=== PATIENT | female | born 1960 | race African-American/Black ===

== ENCOUNTER 2017-12-11 19:56 | Emergency (ER) | payer MEDICARE, MEDICAID ==
[~2017-12-11] VITALS: Ht 167.6 cm; Wt 84.8 kg
[2017-12-11 19:58] VITALS: BP 155/76
== END 2017-12-11 20:00 | disposition left against medical advice (07) ==
LOC: ER 19:56
DX: Z46.6 Encounter for fitting and adjustment of urinary device (principal); Z53.21 Procedure and treatment not carried out due to patient leaving prior to being seen by health care provider

== ENCOUNTER 2018-12-13 09:21 | Emergency (ER) | payer MEDICARE, MEDICAID ==
[~2018-12-13] VITALS: Ht 167.6 cm; Wt 84.8 kg
[2018-12-13 09:31] VITALS: BP 140/76
== END 2018-12-13 11:19 | disposition home or self-care (01) ==
LOC: ER 09:24
DX: J02.9 Acute pharyngitis, unspecified (principal); E11.9 Type 2 diabetes mellitus without complications; Z90.710 Acquired absence of both cervix and uterus

== ENCOUNTER 2019-11-16 13:14 | Emergency (ER) | payer MEDICARE, MEDICAID ==
[~2019-11-16] VITALS: Ht 167.6 cm; Wt 87.5 kg
[2019-11-16 15:01] LABS: Basophils # (auto) 0 uL; Basophils % (auto) 0.5 % (0.0-2.0); Eosinophils # (auto) 0.1 uL; Eosinophils % (auto) 1.4 % (0.0-7.0); Hematocrit 40.5 % (36.0-46.0); Hemoglobin 13.3 g/dL (12.2-16.2); Lymphocytes # (auto) 2.5 uL; Lymphocytes % (auto) 40.7 % (10.0-50.0); Mean Corpuscular Hemoglobin 27.3 pg (28.0-32.0); Mean Corpuscular Hgb Conc. 32.8 g/dL (32.0-36.0); Mean Corpuscular Volume 83.1 fL (80.0-100.0); Monocytes # (auto) 0.5 uL; Monocytes % (auto) 8.4 % (0.0-12.0); Nucleated Red Blood Cells % 0.1 %; Platelet Count (auto) 276 10^3/uL (140-450); Red Blood Cells 4.88 10^6/uL (4.0-5.20); Red Cell Distribution Width 14.2 % (11.8-14.3); White Blood Cell 6.2 10^3/uL (4.4-10.8)
[2019-11-16 15:18] LABS: Albumin 3.6 g/dL (3.4-5.0); BUN/Creatinine Ratio 13.8; Calcium 9.3 mg/dL (8.5-10.1); Potassium 3.8 mmol/L (3.5-5.1)
[2019-11-16 15:21] LABS: Bilirubin, Total 0.5 mg/dL (0.2-1.0); Total Protein 7.9 g/dL (6.4-8.2)
[2019-11-16 17:19] VITALS: BP 133/77
== END 2019-11-16 17:26 | disposition home or self-care (01) ==
LOC: ER 13:14
DX: K59.00 Constipation, unspecified (principal); E11.9 Type 2 diabetes mellitus without complications; I10 Essential (primary) hypertension; Z88.6 Allergy status to analgesic agent
CPT/HCPCS: 36415; 74018; 80053; 85025

== ENCOUNTER 2022-12-30 15:57 | Emergency (ER) | payer MEDICARE, MEDICAID ==
[~2022-12-30] VITALS: Ht 167.6 cm; Wt 97.6 kg
[2022-12-30 16:10] VITALS: BP 131/68
[2022-12-30 18:06] LABS: Urine Bacteria FEW /hpf (None Seen); Urine Blood Negative /uL (Negative); Urine Specific Gravity 1.014 (1.001-1.035); Urine WBC 5 /hpf (0 - 5)
[2022-12-30 19:02] LABS: Basophils # (auto) 0 10 ^3/uL (0-0.2); Basophils % (auto) 0.3 % (0.0-2.0); Eosinophils # (auto) 0.1 10 ^3/uL (0-0.8); Hematocrit 37.8 % (36.0-46.0); Hemoglobin 11.9 g/dL (12.2-16.2); Lymphocytes # (auto) 2.3 10 ^3/uL (0.4-5.4); Mean Corpuscular Hemoglobin 26.7 pg (28.0-32.0)
[2022-12-30 19:04] LABS: Lymphocytes % (auto) 36.7 % (10.0-50.0); Mean Corpuscular Hgb Conc. 31.6 g/dL (32.0-36.0); Mean Corpuscular Volume 84.6 fL (80.0-100.0); Monocytes # (auto) 0.6 10 ^3/uL (0-1.3); Monocytes % (auto) 9.1 % (0.0-12.0); Neutrophils # (auto) 3.2 10 ^3/uL (1.6-8.6); Neutrophils % (auto) 51.9 % (37.0-80.0); Nucleated Red Blood Cells % 0.1 %; Red Blood Cells 4.46 10^6/uL (4.0-5.20); Red Cell Distribution Width 14.2 % (11.8-14.3); White Blood Cell 6.2 10^3/uL (4.4-10.8)
[2022-12-30 19:22] LABS: Albumin 3.2 g/dL (3.4-5.0); Calcium 8.7 mg/dL (8.5-10.1); Potassium 4.5 mmol/L (3.5-5.1)
[2022-12-30 19:25] LABS: BUN/Creatinine Ratio 15.3
[2022-12-30 19:28] LABS: Bilirubin, Total 0.6 mg/dL (0.2-1.0); Total Protein 6.8 g/dL (6.4-8.2)
== END 2022-12-30 19:28 | disposition left against medical advice (07) ==
LOC: ER 15:59
DX: M79.605 Pain in left leg (principal); M79.604 Pain in right leg; R07.89 Other chest pain; Z53.21 Procedure and treatment not carried out due to patient leaving prior to being seen by health care provider
CPT/HCPCS: 36415; 71045; 80053; 81001; 83880; 84484; 85025; 93005

== ENCOUNTER 2024-09-01 15:30 | Inpatient (IN) | payer MEDICARE, MEDICAID ==
[~2024-09-01] VITALS: Ht 167.6 cm; Wt 77.0 kg
[2024-09-01 16:23] LABS: Basophils # (auto) 0 10 ^3/uL (0-0.2); Basophils % (auto) 0.5 % (0.0-2.0); Eosinophils # (auto) 0.1 10 ^3/uL (0-0.8); Eosinophils % (auto) 1.6 % (0.0-7.0); Hematocrit 41.2 % (36.0-46.0); Hemoglobin 13.4 g/dL (12.2-16.2); Lymphocytes # (auto) 1.9 10 ^3/uL (0.4-5.4); Mean Corpuscular Hemoglobin 27.5 pg (28.0-32.0); Mean Corpuscular Hgb Conc. 32.5 g/dL (32.0-36.0); Mean Corpuscular Volume 84.6 fL (80.0-100.0); Monocytes # (auto) 0.4 10 ^3/uL (0-1.3); Monocytes % (auto) 7.7 % (0.0-12.0); Neutrophils # (auto) 2.7 10 ^3/uL (1.6-8.6); Neutrophils % (auto) 53.2 % (37.0-80.0); Platelet Count (auto) 264 10^3/uL (140-450); Red Blood Cells 4.87 10^6/uL (4.0-5.20); Red Cell Distribution Width 13.8 % (11.8-14.3)
[2024-09-01 16:41] LABS: Urine Bacteria FEW /hpf (None Seen); Urine Blood Negative /uL (Negative); Urine Clarity Clear (Clear); Urine Color Light-Yellow (Yellow); Urine Mucus FEW (None Seen); Urine Protein, UAD Negative (Negative); Urine Specific Gravity 1.015 (1.001-1.035); Urine Urobilinogen Normal (Negative); Urine WBC 2 /hpf (0 - 5)
[2024-09-01 16:41] LABS: Alanine Aminotransferase 99 U/L (7-40); Albumin 4.4 g/dL (3.2-4.8); Alkaline Phosphatase 118 U/L (46-116); Anion Gap 5 (5-15); Aspartate Aminotransferase 42 U/L (13-40); BUN/Creatinine Ratio 11.9 (10.0-20.0); Bilirubin, Total 0.7 mg/dL (0.2-1.0); Blood Urea Nitrogen 12 mg/dL (9-23); Calcium 9.8 mg/dL (8.7-10.4); Carbon Dioxide 30 mmol/L (20-31); Chloride 106 mmol/L (98-107); Glucose 195 mg/dL (74-106); Sodium 141 mmol/L (136-145)
[2024-09-01 19:05] VITALS: PULSE 89; RESP 18; O2SAT 100
[2024-09-01 19:20] VITALS: PULSE 89; RESP 18; O2SAT 100
[2024-09-02 00:08] LABS: Partial Thromboplastin Time 27.1 SEC (24.5-34.5); Prothrombin Time 10.6 sec (9.3-11.8)
[2024-09-02] MEDS ORDERED: DEXTROSE (50%) 50ML SYRG IV PRN (04:45)
[2024-09-02] MEDS: ATORVASTATIN 20 MG TAB PO ONE (05:00)
[2024-09-02] MEDS: InsuLIN REG 1unit/0.01ml Soln (100units/ml) SC SCH (08:00)
[2024-09-02] MEDS: ACCU-CHEK COMFORT CURVE STRIP VI SCH (08:14)
[2024-09-02 08:59] VITALS: BP 154/77; PULSE 80; RESP 17; TEMP 98.2; O2SAT 98
[2024-09-02 09:44] VITALS: BP 143/69; PULSE 74; RESP 17; TEMP 98; O2SAT 94
[2024-09-02] MEDS ORDERED: ENOXAPARIN SOD 60 MG/0.6 ML SYRINGE SC SCH (10:00)
[2024-09-02] MEDS ORDERED: hydrALAZINE HCL 20 MG/ML VL IV PRN (10:15)
[2024-09-02] MEDS: INSULIN LANTUS (GLARGINE) 1 /0.01ml (100units/ml) SC SCH (10:41)
[2024-09-02] MEDS ORDERED: BACL10TA PO (11:51)
[2024-09-02] MEDS ORDERED: METO25TA5 PO (11:51)
[2024-09-02] MEDS ORDERED: CLOP75TA28 PO (11:51)
[2024-09-02] MEDS ORDERED: HYDR1TAB97 PO (11:51)
[2024-09-02] MEDS ORDERED: ATOR10TA PO (11:51)
[2024-09-02] MEDS ORDERED: NIT01P TD (11:51)
[2024-09-02] MEDS ORDERED: PREG50CA PO (11:51)
[2024-09-02] MEDS ORDERED: ZOFR4T PO (11:51)
[2024-09-02] MEDS ORDERED: LOSA-533 PO (11:51)
[2024-09-02] MEDS ORDERED: SEMA2INJ3 SC (11:51)
[2024-09-02 13:00] VITALS: BP 143/69; PULSE 74; RESP 17; TEMP 98.2; O2SAT 96
[2024-09-02 14:26] LABS: Amphetamine Screen, Urine Neg (NEGATIVE); Barbiturate Scree,Urine Neg (NEGATIVE); Benzodiazephine Screen, Urine Neg (NEGATIVE); Cocaine Screen, Urine Neg (NEGATIVE); Opiate Scree,Urine Neg (NEGATIVE); Phencyclidine Screen, Urine Neg (NEGATIVE)
[2024-09-02] MEDS ORDERED: [UNRECOGNIZED DRUG - CODE] TD (14:26)
[2024-09-02 14:27] LABS: Cannabinoid Screen, Urine Pos (NEGATIVE)
[2024-09-02 17:00] VITALS: BP 142/66; PULSE 84; RESP 17; TEMP 98.1; O2SAT 99
[2024-09-02 20:00] VITALS: PULSE 79; RESP 18; O2SAT 99
[2024-09-02 21:00] VITALS: BP 145/79; PULSE 79; RESP 17; TEMP 98.3; O2SAT 99
[2024-09-02] MEDS: APIXABAN 5 MG TAB PO SCH (22:00)
[2024-09-02] MEDS: ATORVASTATIN 20 MG TAB PO SCH (22:11)
[2024-09-03] VITALS (9 sets, daily range): BP systolic 114–145; BP diastolic 68–97; PULSE 67–86; RESP 12–70; TEMP 97.6–98.1; O2SAT 17–100
[2024-09-03] MEDS: ONDANSETRON HCL 4 MG/2 ML VIAL IV PRN (01:43)
[2024-09-03 08:48] LABS: Basophils # (auto) 0 10 ^3/uL (0-0.2); Basophils % (auto) 0.6 % (0.0-2.0); Eosinophils # (auto) 0.1 10 ^3/uL (0-0.8); Eosinophils % (auto) 2.3 % (0.0-7.0); Hematocrit 40.8 % (36.0-46.0); Hemoglobin 13.3 g/dL (12.2-16.2); Lymphocytes % (auto) 38.9 % (10.0-50.0); Mean Corpuscular Hemoglobin 27.8 pg (28.0-32.0); Mean Corpuscular Hgb Conc. 32.6 g/dL (32.0-36.0); Mean Corpuscular Volume 85.3 fL (80.0-100.0); Monocytes # (auto) 0.4 10 ^3/uL (0-1.3); Neutrophils # (auto) 2.6 10 ^3/uL (1.6-8.6); Neutrophils % (auto) 50.2 % (37.0-80.0); Nucleated Red Blood Cells % 0.2 %; Platelet Count (auto) 219 10^3/uL (140-450); Red Blood Cells 4.78 10^6/uL (4.0-5.20); Red Cell Distribution Width 13.9 % (11.8-14.3); White Blood Cell 5.2 10^3/uL (4.4-10.8)
[2024-09-03 09:02] LABS: Alanine Aminotransferase 83 U/L (7-40); Alkaline Phosphatase 98 U/L (46-116); Anion Gap 6 (5-15); Aspartate Aminotransferase 45 U/L (13-40); BUN/Creatinine Ratio 12.6 (10.0-20.0); Blood Urea Nitrogen 11 mg/dL (9-23); Calcium 9.8 mg/dL (8.7-10.4); Carbon Dioxide 27 mmol/L (20-31); Chloride 107 mmol/L (98-107); Glucose 130 mg/dL (74-106); Magnesium 1.9 mg/dL (1.6-2.6); Potassium 4.3 mmol/L (3.5-5.1); Sodium 140 mmol/L (136-145); Triglycerides 116 mg/dL (< 150)
[2024-09-03 09:03] LABS: Cholesterol 133 mg/dL (< 200); HDL Cholesterol 47 mg/dL (40-59); LDL Cholesterol 65 mg/dL (< 100)
[2024-09-03 09:04] LABS: Albumin 4.1 g/dL (3.2-4.8); Bilirubin, Total 1.1 mg/dL (0.2-1.0)
[2024-09-03 09:05] LABS: INR 1.03 (0.9-1.15); Partial Thromboplastin Time 26.3 SEC (24.5-34.5); Prothrombin Time 10.9 sec (9.3-11.8)
[2024-09-03 09:24] LABS: Triglycerides 116 mg/dL (< 150)
[2024-09-03 09:25] LABS: LDL Cholesterol 65 mg/dL (< 100)
[2024-09-03 09:26] LABS: Cholesterol 133 mg/dL (< 200); HDL Cholesterol 47 mg/dL (40-59)
[2024-09-03] MEDS: IODIXANOL 320MG/ML 100ML BTL IV ONE (09:36)
[2024-09-03] MEDS: ANGIOMAX 250 MG VIAL IV ONE (09:40)
[2024-09-03] MEDS: HEPARIN SODIUM (PORCINE) 5000 UNITS/ML 1ML VIAL ONE (09:40)
[2024-09-03] MEDS: MIDAZOLAM HCL 2MG/2ML 2ml VIAL (1mg/ml) ONE ×2 (09:40→10:02)
[2024-09-03] MEDS: fentaNYL CITRATE 100 MCG/2 ML VL ONE (09:40)
[2024-09-03] MEDS: VERAPAMIL 2.5MG/ML INJ 2ML VIAL IV ONE (09:40)
[2024-09-03] MEDS: SODIUM CHL 0.9% 0 ML ONE (09:41)
[2024-09-03] MEDS: LIDOCAINE 2%HCL (LOCAL ANESTH.) INJ 20ML MDV ONE (09:50)
[2024-09-03] MEDS: LOSARTAN POTASSIUM 25 MG TAB PO SCH (10:00)
[2024-09-03] MEDS ORDERED: PRASUGREL HCL 10 MG TAB PO SCH (10:00)
[2024-09-03] MEDS: CLOPIDOGREL BISULFATE 75 MG TAB PO SCH (10:00)
[2024-09-03] MEDS: METOPROLOL SUCCINATE XL 50 MG TAB PO SCH (10:00)
== END 2024-09-03 16:09 | disposition home or self-care (01) | DRG 286 ==
LOC: ER 15:30 → OVERFLOW 23:18 → CENTRAL 09-02 05:51
PROVIDERS: ADMIT Internal Medicine; ATTEND Internal Medicine
PROC: 4A023N7 Measurement of Cardiac Sampling and Pressure, Left Heart, Percutaneous Approach (ICD-10-PCS; principal; 2024-09-03)
PROC: B211YZZ Fluoroscopy of Multiple Coronary Arteries using Other Contrast (ICD-10-PCS; 2024-09-03)
PROC: B44FZZZ Ultrasonography of Right Lower Extremity Arteries (ICD-10-PCS; 2024-09-03)
DX: I11.0 Hypertensive heart disease with heart failure (principal); I50.31 Acute diastolic (congestive) heart failure; R04.2 Hemoptysis; I20.0 Unstable angina; R04.0 Epistaxis; I25.5 Ischemic cardiomyopathy; E11.9 Type 2 diabetes mellitus without complications; E78.5 Hyperlipidemia, unspecified; E66.9 Obesity, unspecified; D75.A Glucose-6-phosphate dehydrogenase (G6PD) deficiency without anemia; M54.9 Dorsalgia, unspecified; G89.29 Other chronic pain; D57.3 Sickle-cell trait; Z88.6 Allergy status to analgesic agent; Z88.0 Allergy status to penicillin; Z88.8 Allergy status to other drugs, medicaments and biological substances; Z79.899 Other long term (current) drug therapy; Z83.3 Family history of diabetes mellitus; I25.2 Old myocardial infarction; Z82.49 Family history of ischemic heart disease and other diseases of the circulatory system; Z82.5 Family history of asthma and other chronic lower respiratory diseases; Z86.73 Personal history of transient ischemic attack (TIA), and cerebral infarction without residual deficits; Z90.710 Acquired absence of both cervix and uterus; Z98.61 Coronary angioplasty status; R42 Dizziness and giddiness
CPT/HCPCS: 36415; 71045; 80053; 80061; 80307; 81001; 82962; 83036; 83735; 83880; 84443; 84484; 85025; 85379; 85610; 85730; 93005; 93306; 93458; 93970; 99152; 99291; G0378; J1815; J2250; J2405; Q9967

== ENCOUNTER 2025-09-30 18:50 | Emergency (ER) | payer MEDICARE, MEDICAID ==
[~2025-09-30] VITALS: Ht 167.6 cm; Wt 72.0 kg
[2025-09-30] MEDS: KETOROLAC TROMETH 30 MG/ML 1ML VIAL IM ONE (08:49)
[~2025-09-30 18:50] MED LIST: ATOR10TA PO; BACL10TA PO; CLOP75TA28 PO; HYDR1TAB97 PO; LOSA-533 PO; METO25TA5 PO; PREG50CA PO; SEMA2INJ3 SC; ZOFR4T PO; [UNRECOGNIZED DRUG - CODE] TD
[2025-09-30 19:00] VITALS: TEMP 98.9
[2025-09-30 20:31] VITALS: BP 134/92; PULSE 99; RESP 16; O2SAT 99
--- NOTE | 2025-09-30 20:31 | ED.PDOC ---
General HPI Comments 64 y/o F, BIBA, with PMHx of HTN, DM, and [place] presents to the ED for CC of flank pain. 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 Patient states, she was seen at [facility] for SS yesterday (09/29/25) and was told have possible kidney stones. Patient comments, having associated symptoms of of scant urine production with difficulty voiding. Patient denies hematuria, fever, chill, nausea, or vomiting. No other symptoms or modifying factors are present at this time. Chief Complaint: Flank Pain Time Seen by MD: 20:00 Primary Care Provider: HORACIO Reviewed notes: Nurses Notes, Transformation Architect Notes, Medications, Allergies Allergies: Coded Allergies: Aspirin (Verified Allergy, Unknown, 12/11/17) Morphine (Verified Allergy, Unknown, 09/30/25) Uncoded Allergies: PENICILLIN (Allergy, Unknown, 12/11/17) Home Meds Reported Medications Nitroglycerin (Nitroglycerin Transdermal) 0.6 Mg/Hr Dis, TD, DIS 09/02/24 Ondansetron Odt 4MG Tab (ZOFRAN PO) 4 Mg Tb, PO, TAB ODT TAB-DISSOLVE IN MOUTH, THEN SWALLOW 09/02/24 Metoprolol Tartrate (Metoprolol Tartrate) 25 Mg Tab, PO for 30 Days, MG 09/02/24 Losartan Potassium (Losartan Potassium) 25 Mg Tab, PO DAILY for 30 Days, MG 09/02/24 Semaglutide (Ozempic) 2 Mg/3 Ml Inj, SC, INJ 09/02/24 Pregabalin (Lyrica) 50 Mg Cap, PO TID, #90 CAP 09/02/24 Atorvastatin Calcium (Lipitor) 10 Mg Tab, PO QPM, #90 TAB 1 Refill 09/02/24 Baclofen (Baclofen) 10 Mg Tab, PO Q8HP for 30 Days, MG 09/02/24 Clopidogrel Bisulfate (Plavix) 75 Mg Tab, PO DAILY, #90 TAB 1 Refill 09/02/24 Hydrocodone-Acetaminophen (Hydrocodone/Acetaminophen 5-325 mg) 1 Tab Tab, PO, TAB 09/02/24 Information Source: Patient, Emergency Med Personnel Mode of Arrival: Ambulatory Severity: Moderate Timing: Hours Duration: Since onset Prehospital treatment: None Onset: Spontaneous Symptoms: Inability to void History of: Kidney stone Location: (R) Flank, (L)Flank Modifying factors: None associated signs and symptoms: Back Pain Past Medical History PAST MEDICAL HISTORY: DM, HTN, [place] Surgical History: Hysterectomy FACILITIES ENGINEER History: No Pertinent FACILITIES ENGINEER History Family History Family History: Family hx of DM, Family hx of Cancer Social History Smoker: Non-Smoker Alcohol: Denies ETOH Use Drugs: Denies Drug Use Lives In: Home Constitutional: denies: chills, diaphoresis, fatigue, fever, malaise, sweats, weakness, others EENTM: denies: blurred vision, double vision, ear bleeding, ear discharge, ear drainage, ear pain, ear ringing, eye pain, eye redness, hearing loss, mouth pain, mouth swelling, nasal discharge, nose bleeding, nose congestion, nose pain, photophobia, tearing, throat pain, throat swelling, voice changes, others Respiratory: denies: cough, hemoptysis, orthopnea, SOB at rest, shortness of breath, SOB with excertion, stridor, wheezing, others Cardiovascular: denies: chest pain, dizzy spells, diaphoresis, Dyspnea on exertion, edema, irregular heart beat, left arm pain, lightheadedness, palpitations, PND, syncope, others Gastrointestinal: denies: abdomen distended, abdominal pain, blood streaked bowels, constipated, diarrhea, dysphagia, difficulty swallowing, hematemesis, melena, nausea, poor appetite, poor fluid intake, rectal bleeding, rectal pain, vomiting, others Genitourinary: reports: flank pain; denies: abnormal vagina bleeding, burning, dyspareunia, dysuria, frequency, hematuria, incontinence, pain, , vagina discharge, urgency, others Neurological: denies: dizziness, fainting, headache, left sided numbness, left sided weakness, numbness, paresthesia, pre-existing deficit, right sided numbness, right sided weakness, seizure, speech problems, tingling, tremors, weakness, others Musculoskeletal: reports: back pain; denies: gout, joint pain, joint swelling, muscle pain, muscle stiffness, neck pain, others Integumetry: denies: bruises, change in color, change in hair/nails, dryness, laceration, lesions, lumps, rash, wounds, others Allergic/Immunocompromised: denies: Difficulty Healing, Frequent Infections, Hives, Itching, others Hematologic/Lymphatic: denies: anemia, blood clots, easy bleeding, easy bruising, swollen glands, others Endocrine: denies: excessive hunger, excessive sweating, excessive thirst, excessive urination, flushing, intolerance to cold, intolerance to heat, unexplained weight gain, unexplained weight loss, others Psychiatric: denies: anxiety, bipolar disorder, depression, hopeless, panic disorder, schizophrenia, sleepless, suicidal, others All Other Systems: Reviewed and Negative Physical Exam General Appearance: No Apparent Distress, Normal HEENT: Normal ENT Inspection, Pharynx Normal Neck: Full Range of Motion, Non-Tender, Normal, Normal Inspection Respiratory: Chest Non-Tender, Lungs Clear, No Accessory Muscle Use, No Respiratory Distress, Normal Breath Sounds Cardiovascular: No Edema, No Murmur, No Gallop, Normal Peripheral Pulses, Regular Rate/Rhythm Breast Exam: Deferred Gastrointestinal: No Organomegaly, Non Tender, No Pulsatile Mass, Normal Bowel Sounds, Soft Genitalia: Deferred Pelvic: Deferred Rectal: Deferred Extremities: No calf tenderness, Normal capillary refill, Normal inspection, Normal range of motion, Non-tender, No pedal edema Musculoskeletal : Location: Bilateral Extremity Location: Back Apperance: Tenderness (over thoracic region, associated pain with movement ) Neurologic: Alert, 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 Was a procedure done?: No Differential Diagnosis Kidney stone (Female): Musculoskeletal pain, Strain, Urinary obstruction, Urolithiasis X-Ray, Labs, Meds, VS Vital Signs Date Time Temp Pulse Resp B/P (MAP) Pulse Ox O2 Delivery O2 Flow Rate FiO2 09/30/25 20:31 99 16 134/92 (106) 99 09/30/25 19:00 98.9 111 20 163/106 97 98.9 Current Medications Medications (Trade) Dose Ordered Sig/Pamela Route Start Time Stop Time Status Last Admin Ketorolac Tromethamine (Toradol Injection) 30 mg ONCE ONCE IM 09/30/25 19:45 09/30/25 19:46 DC 09/30/25 08:[address] - [address] Ph: [phone] DIAGNOSTIC IMAGING Diagnostic Imaging Report : [id number] Signed PATIENT: NAREN BOOKER ACCT: [id number] UNIT: [id number] : 1960 LOC: ER ROOM / BED: / AGE / SEX: 64 / F ADM STATUS: REG ER SERVICE 42 ORDERING PHYSICIAN: HERNÁN HEATH PEER COUNSELOR PROCEDURE(s): KIDUS - KIDNEY REASON: pain ORDER NUMBER(s): [id number], ACCESSION NUMBER(s): [id number] INDICATION: pain TECHNIQUE: Multiple real-time sonographic images of the kidneys and bladder were obtained. COMPARISON: US KIDNEY RETROPERITONEUM on DOS: 09/26/25 FINDINGS: RIGHT kidney measures 10.43 cm in length. Hydronephrosis right kidney LEFT kidney measures 9.77 cm in length. Hydronephrosis left kidney. No large intraluminal masses are seen in the bladder. Prevoid bladder volume 12/16/2040 ML Post void residual of 1562 mL. Bladder jets visualized bilaterally. Bladder wall measures 5 mm IMPRESSION: 1. Bilateral hydronephrosis 2. Right kidney measures 10.43 cm left kidney measures 9.77 cm 3. Postvoid bladder volume 1562 mL ATED BY: CARLITOS SEAY Jr., DO DICTATED DATE/TIME: 09/30/252044 SIGNED BY: CARLITOS SEAY Jr., SIGNED DATE/TIME: 09/30/252044 CC: [place] [id number] Ph: [phone] DIAGNOSTIC IMAGING Diagnostic Imaging Report : [id number] Signed PATIENT: NAREN BOOKER ACCT: [id number] UNIT: [id number] : 1960 LOC: ER ROOM / BED: / AGE / SEX: 64 / F ADM STATUS: REG ER SERVICE 42 ORDERING PHYSICIAN: HERNÁN HEATH PEER COUNSELOR PROCEDURE(s): ABPL - CT AB PEL WO CON-NO ORAL OR IV REASON: abd pain ORDER NUMBER(s): [id number], ACCESSION NUMBER(s): [id number] EXAM: CT CT AB PEL WO CON-NO ORAL OR IV INDICATION: abd pain TECHNIQUE: Volumetric multidetector CT images of the abdomen and pelvis were obtained without contrast. All CT scans at this facility use dose modulation, iterative reconstruction, and/or weight based dosing when appropriate to reduce radiation dose to as low as reasonably achievable. COMPARISON: CT ABD/PEL on DOS: 09/25/25 FINDINGS: [LOWER CHEST]: The partially visualized lung bases are clear without a pleural effusion. The cardiac size is normal without pericardial effusion. [LIVER]: Normal hepatic size without suspicious focal lesion. [GALLBLADDER AND BILIARY TREE]: Surgically absent. [SPLEEN]: Unremarkable. [PANCREAS]: Unremarkable. [ADRENAL GLANDS]: Unremarkable [KIDNEYS]: Moderate to severe right and moderate left pelviectasis with a mild to moderate hydroureter. No nephroureterolithiasis. No suspicious focal lesion. [BLADDER]: Significant bladder distention [REPRODUCTIVE ORGANS]: Hysterectomy [BOWEL/MESENTERY]: Stomach is normal. No CT evidence of bowel obstruction. mild stool burden. [ASCITES]: Absent [LYMPHADENOPATHY]: No pathologically enlarged lymph nodes by CT size criteria [VASCULATURE]: No aneurysmal dilatation. [ABDOMINAL WALL]: Unremarkable. [MUSCULOSKELETAL]: No acute fracture or aggressive focal osseous lesion. Multifocal degenerative change of the visualized spine. bilateral trans sacroiliac screws. Postsurgical changes of the lumbar spine with intervertebral disc spacers of the thoracolumbar spine posterior decompression at L5. IMPRESSION: 1. Significant bladder distention with prominent pelviectasis as detailed above with a minimal developing caliectasis/hydronephrosis without obstructive stone. Correlate for significant urinary retention which may be neurogenic. 2. Mild stool burden. ATED BY: ADAM BOONE MD DICTATED DATE/TIME: 09/30/252027 SIGNED BY: ADAM BOONE MD SIGNED DATE/TIME: 09/30/252027 CC: X-Ray, Labs, Meds, VS Comment CT scan shows hydronephrosis were no stones, concerns of acute urinary retention. Sign patient states she has appointment with Dr. Pineda on Patient be placed with Noble catheter and leg bag 1700 cc released him from Noble catheter Patient reports good pain relief and discomfort relief. Time of 1ST Reevaluation: 20:30 Reevaluation 1ST: Unchanged Patient Education/Counseling: Diagnosis, Treatment, Need For Follow Up (Follow up with Urology on as scheduled) Family Education/Counseling: No Family Present SEPSIS Sepsis Screen Date sepsis recognized/suspect: Sep 30, 2025 Time Sepsis recognized/suspect: 1901 Recent Procedure: No Respiratory Rate >20: No Heart Rate >90: Yes Temp<36 C (96.8 F) or >38.3 C: No SBP <90 or MAP <65 mmHG: No New Acute Mental Status Change: No Is the patient on CPAP, BIPAP,: No Physician Orders Kidney (09/30/25 19:43) Ct Ab Pel Wo Con-No Oral Or Iv (09/30/25 19:43) Insert/Manage Urinary Catheter QSHIFT (09/30/25 20:55) Vital Signs Date Time Temp Pulse Resp B/P (MAP) Pulse Ox O2 Delivery O2 Flow Rate FiO2 09/30/25 20:31 99 16 134/92 (106) 99 09/30/25 19:00 98.9 111 20 163/106 97 98.9 Medications Medications Dose Ordered Sig/Pamela Route Start Time Stop Time Status Last Admin Dose Admin Ketorolac Tromethamine 30 mg ONCE ONCE IM 09/30/25 19:45 09/30/25 19:46 DC 09/30/25 08:49 Departure 1 Departure Time of Disposition: 22:04 Impression: Primary Impression: Acute urinary retention Disposition: HOME / SELF CARE / HOMELESS Condition: Fair Discharged With: Self Critical Care Note Critical Care Time?: No Stability Stability form required: No Heart Score Heart Score: Heart Score Response (Comments) Value History N/A 0 EKG N/A 0 Age N/A 0 Risk Factors N/A 0 Troponin N/A 0 Total 0 I personally scribed for HERNÁN HEATH PEER COUNSELOR ([email or web address]) on 09/30/25 at 20:30. Electronically submitted by Lorri Sanchez ([email or web address]). I personally scribed for HERNÁN HEATH PEER COUNSELOR ([email or web address]) on 09/30/25 at 20:32. Electronically submitted by Lorri Sanchez ([email or web address]). I personally scribed for HERNÁN HEATH ([email or web address]) on 09/30/25 at 20:53. Electronically submitted by Lorri Sanchez ([email or web address]). I personally scribed for HERNÁN HEATH ([email or web address]) on 09/30/25 at 20:54. Electronically submitted by Lorri Sanchez ([email or web address]). HERNÁN HEATH Sep 30, 2025 20:30
--- NOTE | 2025-09-30 20:48 | DVH ---
INDICATION: pain TECHNIQUE: Multiple real-time sonographic images of the kidneys and bladder were obtained. COMPARISON: US KIDNEY RETROPERITONEUM on DOS: 09/26/25 FINDINGS: RIGHT kidney measures 10.43 cm in length. Hydronephrosis right kidney LEFT kidney measures 9.77 cm in length. Hydronephrosis left kidney. No large intraluminal masses are seen in the bladder. Prevoid bladder volume 12/16/2040 ML Post void residual of 1562 mL. Bladder jets visualized bilaterally. Bladder wall measures 5 mm IMPRESSION: 1. Bilateral hydronephrosis 2. Right kidney measures 10.43 cm left kidney measures 9.77 cm 3. Postvoid bladder volume 1562 mL
== END 2025-09-30 22:15 | disposition home or self-care (01) ==
LOC: EDUNIT# 18:50 → ER 18:50 → EDBD 18:50 → ER 22:15
DX: R33.9 Retention of urine, unspecified (principal); M54.9 Dorsalgia, unspecified; E11.9 Type 2 diabetes mellitus without complications; I10 Essential (primary) hypertension; Z87.442 Personal history of urinary calculi; Z88.0 Allergy status to penicillin; Z88.5 Allergy status to narcotic agent; Z88.6 Allergy status to analgesic agent; Z90.710 Acquired absence of both cervix and uterus
CPT/HCPCS: 51702; 74176; 76775; 96372; 99285; J1885